=== PATIENT | female | born 1985 | race Caucasian/White ===

== ENCOUNTER 2018-10-02 12:22 | Inpatient (IN) | payer BC ==
[2018-10-02 13:00] VITALS: BMI 37.9
[2018-10-02 14:01] LABS: #Basophils 0.1 thou/uL (0.0-0.2); #Eosinphils 0.1 thou/uL (0.0-0.7); #Lymphocytes 2.2 thou/uL (1.20-3.40); #Neutrophils 10.6 thou/uL (1.40-6.50); %Basophils 0.4 % (0.0-1.0); %Eosinophils 0.7 % (0.0-10.0); %Lymphocytes 15.8 % (21.0-51.0); %Monocytes 7.2 % (0.0-10.0); %Neutrophils 75.9 % (42.0-75.0); Hemoglobin 13.1 g/dL (12.0-16.0); Mean Corpuscular HGB CONC 34.3 g/dL (32.0-36.0); Mean Corpuscular Hemoglobin 31.1 pg (27.0-31.0); Mean Corpuscular Volume 90.5 fL (78.0-98.0); Platelet Count 258 thou/uL (130-400); RBC Distribution Width 12.8 % (11.5-14.5); Red Blood Cell (RBC) Count 4.21 mill/uL (4.20-5.40); White Blood Cell (WBC) Count 13.9 thou/uL (4.8-10.8)
[2018-10-02 14:27] LABS: ALT (SGPT) 13 U/L (8-55); AST (SGOT) 15 U/L (5-34); Albumin 3.1 g/dL (3.5-5.0); Alkaline Phosphatase 194 U/L (40-150); Anion Gap 11 mmol/L (10-20); BUN (Urea Nitrogen) 7 mg/dL (7.0-18.7); Bilirubin, Total 0.3 mg/dL (0.2-1.2); Calc. Creatinine Clearance 195 mL/min (70-130); Calcium 9.1 mg/dL (7.8-10.44); Carbon Dioxide 21 mmol/L (22-29); Chloride 107 mmol/L (98-107); Estimated GFR-MDRD Greater than 90; Globulin 3.5 g/dL (2.4-3.5); Glucose 93 mg/dL (70-105); Potassium 3.8 mmol/L (3.5-5.1); Protein, Total 6.6 g/dL (6.0-8.3); Sodium 135 mmol/L (136-145)
[2018-10-02 15:00] LABS: Creatinine, Urine 77.29 mg/dL (47-110)
[2018-10-02] MEDS ORDERED: Promethazine HCl 25 MG/ML VIAL IM PRN (15:42)
[2018-10-02] MEDS ORDERED: Lidocaine 1% (PF) 30 ML VIAL SC PRN (15:42)
[2018-10-02] MEDS ORDERED: Ondansetron PF 4 MG/2 ML Vial IVP PRN (15:42)
[2018-10-02] MEDS ORDERED: Misoprostol 200 MCG TAB PR PRN (15:42)
[2018-10-02] MEDS ORDERED: Carboprost 250 MCG/ML AMP IM PRN (15:42)
[2018-10-02] MEDS ORDERED: HYDROcodone/Acetaminophen 5/325 mg Tablet PO PRN ×2 (15:42)
[2018-10-02] MEDS ORDERED: Diphenoxylate HCl/Atropine Tablet PO PRN ×2 (15:42)
[2018-10-02] MEDS ORDERED: NS / Oxytocin 40 units/1000ml 1,000 ML IV PRN (15:42)
[2018-10-02] MEDS ORDERED: Ibuprofen 800 MG TAB PO PRN (15:42)
[2018-10-02] MEDS ORDERED: Acetaminophen 500 MG TAB PO PRN (15:42)
[2018-10-02] MEDS ORDERED: Penicillin G Potassium 5 MILL.UNITS in Sodium Chloride 0.9% 100 ML IVPB SCH (15:45)
[2018-10-02] MEDS: Lactated Ringer's 1,000 ML IV SCH (16:45)
--- NOTE | 2018-10-02 17:27 | PDOC.LDHP ---
Labor and Delivery H&P Chief complaint: other (Elevated BP) HPI: 32 y/o G1 at 39w3d, patient of Dr. Foley, presents with elevated BP at home. She denies any VB, LOF, ctx, D[place], vision changes RUQ pain or other concerns. + FM. ROS neg for HEENT, CV, pulm, GI, , neuro, psych, skin, musculoskeletal, or constitutional symptoms other than mentioned above. Current gestational age (weeks): 39 OB History Details: IVF Current complications: gestational hypertension Past Medical History: Obesity Current medications: pre-vasquez vitamins Previous surgical history: none Allergies/Adverse Reactions: Allergies Allergy/AdvReac Type Severity Reaction Status Date / Time No Known Allergies Allergy Verified 10/02/18 13:01 Social history: none - Physical Exam Abnormal vital signs: mild range diastolic BPs General: NAD, resting Lungs: nonlabored breathing Abdomen: gravid Extremeties: no edema FHT: category 1 (135, mod variability, + accels, no decels) [place] contractions every: None - Vaginal Exam cm dilated: 1 Effacement: 25% Station: -3 - OB Labs GBS: positive - Assessment L&D Assessment: medically indicated induction - Plan Plan: admit to L&D, cervical ripening (balloon), GBS antibiotic prophylaxis, informed consent obtained, anesthesia consult for pain management (if desired)
[2018-10-02 17:42] LABS: Syphilis Antibody Nonreactive (Nonreactive); Syphilis Antibody Index 0.08 S/CO (<1.00 Non-Reactive)
--- NOTE | 2018-10-02 18:13 | PDOC.LDPN ---
Labor & Delivery Progress Note - Subjective Subjective: comfortable - Objective Vital signs reviewed and normal: yes General: NAD, resting Uterine fundus: non tender Dilation: 1 Effacement: 25% Station: -3 FHT: category 1 Procedures: Cooks balloon placed. Sm amount of bleeding from external cx Plan: continue plan of care
[2018-10-02] MEDS: Penicillin G 2.5 MILL.units 2.5 MILL.UNITS in Premix Bag 1 BAG IVPB SCH ×2 (18:41→22:02)
[2018-10-02 19:35] LABS: Hep B Surf Ag NonReactive S/CO (NonReactive)
[2018-10-02 19:36] LABS: HBSAg Index 0.33 S/CO (0-0.99)
[2018-10-02] MEDS: Butorphanol Tartrate 1 MG/ML VIAL SLOW IVP PRN (22:01)
[2018-10-03] MEDS: Lactated Ringer's 1,000 ML IV SCH ×2 (00:46→08:50)
[2018-10-03] MEDS: Butorphanol Tartrate 1 MG/ML VIAL SLOW IVP PRN (02:34)
[2018-10-03] MEDS: Penicillin G 2.5 MILL.units 2.5 MILL.UNITS in Premix Bag 1 BAG IVPB SCH ×3 (05:58→14:39)
[2018-10-03] MEDS ORDERED: Fentanyl 4 mcg/Bup 0.1% Cadd 100 ML ONE ×2 (07:03→14:54)
--- NOTE | 2018-10-03 07:58 | PDOC.LDPN ---
Labor & Delivery Progress Note - Subjective Subjective: comfortable - Objective Abnormal vital signs: mild range BP, isolated 160s noted while sitting up for epidural General: NAD Dilation: 6 Effacement: 75% FHT: category 1 AROM: clear fluid (copious) - Assessment (1) 39 weeks gestation of Code(s): Z3A.39 - 39 WEEKS GESTATION OF Current Visit: Yes Status : Acute (2) Gestational hypertension Code(s): O13.9 - GESTATIONAL HTN W/O SIGNIFICANT PROTEINURIA, UNSP TRIMESTER Current Visit: Yes Status: Acute Plan: continue plan of care
[2018-10-03] MEDS ORDERED: Naloxone HCl 0.4 mg/ml Vial IVP PRN ×2 (09:00)
[2018-10-03] MEDS ORDERED: Eucerin (Mineral Oil/Petrolatum,White) 30 gm Jar TOP PRN (09:00)
[2018-10-03] MEDS ORDERED: Ondansetron PF 4 MG/2 ML Vial IVP PRN ×2 (09:00→21:49)
[2018-10-03] MEDS ORDERED: Fentanyl 4 mcg/Bupivacaine 0.1% Cassette 100 ML EPIDURAL SCH (09:00)
[2018-10-03] MEDS ORDERED: Communication Order-Pharmacy FS SCH (09:00)
[2018-10-03] MEDS ORDERED: ePHEDrine/0.9% NaCl/PF SYRINGE 50 mg/10 ml SLOW IVP PRN (09:00)
[2018-10-03] MEDS ORDERED: Acetaminophen 325 MG TAB PO PRN (09:00)
[2018-10-03] MEDS ORDERED: Lactated Ringer's 500 ML IV PRN (09:00)
[2018-10-03] MEDS ORDERED: Promethazine HCl 25 MG/ML VIAL IM PRN (09:00)
[2018-10-03] MEDS ORDERED: diphenhydrAMINE 50 MG/ML VIAL IVP PRN (09:00)
[2018-10-03] MEDS ORDERED: Bupivacaine 0.25% HCL 30 ML VIAL ONE (11:11)
--- NOTE | 2018-10-03 13:10 | PDOC.LDPN ---
Labor & Delivery Progress Note - Subjective Subjective: comfortable - Objective Vital signs reviewed and normal: yes General: resting Dilation: 9 Effacement: 90% Station: 1+ FHT: category 1 [place] contractions every: 4 AROM: bloody fluid - Assessment (1) 39 weeks gestation of Code(s): Z3A.39 - 39 WEEKS GESTATION OF Current Visit: Yes Status : Acute (2) Gestational hypertension Code(s): O13.9 - GESTATIONAL HTN W/O SIGNIFICANT PROTEINURIA, UNSP TRIMESTER Current Visit: Yes Status: Acute Plan: continue plan of care -: A/P: Position change to high fowlers, anticipate transition to 2nd stage soon. FHT reassuring.
[2018-10-03] MEDS ORDERED: NS w/ Oxytocin 10 units 500 ML ONE (14:17)
[2018-10-03] MEDS ORDERED: Lidocaine 1% (PF) 30 ML VIAL ONE (16:09)
--- NOTE | 2018-10-03 16:20 | PDOC.OPDEL ---
OB Operative/Delivery Note Delivery Dr/Surgeon: Og Pre-Delivery Diagnosis: medically indicated induction (GHTN) Procedure/Post Delivery Dx: spontaneous vaginal delivery Weeks gestation: 39 Anesthesia: epidural (and local to perineum) - Findings A Sex: male - 1 min: 9 - 5 min: 9 - Additional Findings/Plan Placenta delivered: manual removal (cord separation during placental delivery, placenta manually removed intact/full specimen) Repaired Obstetrical Laceration: periurethral Estimated blood loss: 400ml Post delivery plan: routine recovery
[2018-10-03] MEDS ORDERED: Milk Of Magnesia 30 ML UDCUP PO PRN (21:49)
[2018-10-03] MEDS ORDERED: Bisacodyl 10 MG SUPP PR PRN (21:49)
[2018-10-03] MEDS ORDERED: diphenhydrAMINE 25 MG CAP PO PRN (21:49)
[2018-10-03] MEDS ORDERED: NS / Oxytocin 40 units/1000ml 1,000 ML IV SCH (21:49)
[2018-10-03] MEDS ORDERED: Benzocaine/Menthol 20-0.5% 60 ML CAN TOP PRN (21:49)
[2018-10-03] MEDS ORDERED: HYDROcodone/Acetaminophen 5/325 mg Tablet PO PRN ×2 (21:49)
[2018-10-03] MEDS ORDERED: Preparation H Ointment 28 GM TUBE PR PRN (21:49)
[2018-10-03] MEDS ORDERED: Lanolin Ointment 7 GM TUBE TOP PRN (21:49)
[2018-10-03] MEDS: Ibuprofen 800 MG TAB PO SCH (22:17)
[2018-10-04] MEDS: Ibuprofen 800 MG TAB PO SCH ×3 (06:06→21:32)
[2018-10-04 06:54] LABS: Hemoglobin 11.3 g/dL (12.0-16.0); Mean Corpuscular HGB CONC 34.1 g/dL (32.0-36.0); Mean Corpuscular Hemoglobin 31.3 pg (27.0-31.0); Mean Corpuscular Volume 91.7 fL (78.0-98.0); Mean Platelet Volume 8.1 fL (7.4-10.4); Platelet Count 212 thou/uL (130-400); RBC Distribution Width 12.9 % (11.5-14.5); Red Blood Cell (RBC) Count 3.62 mill/uL (4.20-5.40); White Blood Cell (WBC) Count 18.3 thou/uL (4.8-10.8)
[2018-10-04] MEDS: Penicillin G 2.5 MILL.units 2.5 MILL.UNITS in Premix Bag 1 BAG IVPB SCH (07:23)
[2018-10-04] MEDS: Lactated Ringer's 1,000 ML IV SCH (07:23)
[2018-10-04] MEDS: Ferrous Sulfate 325 MG TAB PO SCH ×2 (08:06→16:56)
[2018-10-04] MEDS: Prenatal Vitamin 1 TAB PO SCH (08:10)
[2018-10-04] MEDS: Docusate Calcium (SURFAK) 240 MG CAP PO SCH ×2 (08:10→21:26)
[2018-10-04] MEDS ORDERED: Adacel (T-DAP) 0.5 ML VIAL IM ONE (09:00)
--- NOTE | 2018-10-04 09:03 | PRG ---
DATE OF SERVICE: 10/04/2018 PRIMARY OB: Pj Foley DO, MS HISTORY OF PRESENT ILLNESS: The patient is a 32-year-old female day 1, status post a term spontaneous vaginal delivery secondary to -induced hypertension. Her course has been uncomplicated thus far. She reports she is tolerating p.o., voiding her own, having decreased lochia, and good pain control. PHYSICAL EXAMINATION: VITAL SIGNS: Blood pressure since delivery have all been within the normal range. Her most recent pressures 112/87, temperature 97.9, pulse of 91, and respiratory rate of 18. GENERAL: She appears to be in no acute distress. She is alert, oriented, cooperative, and pleasant to interact with. HEAD: Normocephalic and atraumatic. : Fundus is firm at the umbilicus. EXTREMITIES: Nontender with minimal edema and symmetrical. I anticipate discharge tomorrow. I will continue routine care. Job ID: [id number]
[2018-10-05] MEDS: Ibuprofen 800 MG TAB PO SCH (06:09)
[2018-10-05 08:41] VITALS: BP 129/86; TEMP 98.4
[2018-10-05] MEDS: Prenatal Vitamin 1 TAB PO SCH (12:24)
[2018-10-05] MEDS: Ferrous Sulfate 325 MG TAB PO SCH (12:24)
[2018-10-05] MEDS: Docusate Calcium (SURFAK) 240 MG CAP PO SCH (12:24)
== END 2018-10-05 12:35 | disposition home or self-care (01) | DRG 807 ==
LOC: L&D/OP 12:22 → L&D 16:50 → 3SE 10-03 20:31
PROVIDERS: ADMIT Obstetrics & Gynecology; ATTEND Obstetrics & Gynecology
PROC: 10E0XZZ Delivery of Products of Conception, External Approach (ICD-10-PCS; principal; 2018-10-03)
PROC: 10D17Z9 Manual Extraction of Products of Conception, Retained, Via Natural or Artificial Opening (ICD-10-PCS; 2018-10-03)
PROC: 0UQMXZZ Repair Vulva, External Approach (ICD-10-PCS; 2018-10-03)
PROC: 10907ZC Drainage of Amniotic Fluid, Therapeutic from Products of Conception, Via Natural or Artificial Opening (ICD-10-PCS; 2018-10-03)
PROC: 0HQ9XZZ Repair Perineum Skin, External Approach (ICD-10-PCS; 2018-10-03)
DX: O13.4 Gestational [pregnancy-induced] hypertension without significant proteinuria, complicating childbirth (principal); Z37.0 Single live birth; Z3A.39 39 weeks gestation of pregnancy; O70.0 First degree perineal laceration during delivery; O73.0 Retained placenta without hemorrhage
CPT/HCPCS: 36415; 51702; 80053; 82570; 84156; 85025; 85027; 86780; 86850; 86900; 86901; 87340; 99285; J0595; J2001; J2540; J7050; S0020